=== PATIENT | female | born 2000 | race Caucasian/White ===

== ENCOUNTER 2025-06-10 19:54 | Inpatient (IN) | payer OTHER ==
[~2025-06-10] VITALS: Ht 167.6 cm; Wt 83.9 kg
[2025-06-10 20:31] VITALS: BP 154/92
[2025-06-10 22:12] LABS: BASO % 0.3 % (0.1-1.2); EOS # 0.07 (0.04-0.54); EOS % 0.6 % (0.7-7.0); LYMPH # 1.66 (1.18-3.74); LYMPH % 14.4 % (19.3-53.1); MEAN PLATELET VOLUME 10.60 fl (9.4-12.4); MONO # 0.68 (0.24-0.82); MONO % 5.9 % (4.7-12.5); NEUT # 8.98 (1.56-6.13); NEUT % 77.8 % (34.0-71.1); RED CELL DISTRIBUTION WIDTH 12.0 % (11.6-14.4)
[2025-06-10 22:13] LABS: URINE APPEARANCE Clear; URINE BILIRRUBIN Negative (NEGATIVE); URINE BLOOD Negative; URINE COLOR Yellow; URINE GLUCOSE Negative (NEGATIVE); URINE KETONE Negative (NEGATIVE); URINE LEUKOCYTE Trace; URINE NITRATE Negative; URINE PROTEIN Negative (NEGATIVE); URINE UROBILINOGEN 0.2 E.U./dl
[2025-06-10 22:17] LABS: URINE BACTERIA 3438.0 uL (0.0-1933); URINE EPITHELIAL CELLS 37.8 uL (0.0-38.8); URINE RBC 4.3 uL (0.0-20.8); URINE WBC 36.1 uL (0.0-23.2)
[2025-06-10 22:29] LABS: TYPE CELLS RENAL TUBULAR; URINE CAST 0.29 uL (0.0-1.40)
[2025-06-10 22:37] LABS: ALT/SGPT 88.0 U/L (12-78); AST/SGOT 77.0 U/L (15-37); BILIRUBIN TOTAL 0.24 mg/dL (0.3-1.2); BUN CREA RATIO 19.0 (7.0-25.0); CREATININE SERUM 0.68 mg/dL (0.55-1.02); GFR 104.59; GLOBULINA 4.1 G/DL (2.4-3.5); GLUCOSE FASTING 81.0 mg/dL (65-100); OSMOLALITY SERUM 280.0 MOSM/KG (275-295)
[2025-06-10] MEDS ORDERED: PRENATA CHEWAB1 EACH (22:45)
[2025-06-10 23:15] VITALS: BP 150/91
[2025-06-10] MEDS ORDERED: LABETALOL HCL 200 MG TABLET PO SCH (23:52)
[2025-06-11] VITALS (10 sets, daily range): BP systolic 132–163; BP diastolic 82–102; O2SAT 98–99
[2025-06-11] MEDS ORDERED: hydrALAZINE HCL 20 MG VIAL ONE (06:38)
[2025-06-11] MEDS ORDERED: hydrALAZINE HCL 20 MG VIAL IV ONE (07:45)
[2025-06-11] MEDS ORDERED: RINGERS SOLUTION,LACTATED 1,000 ML IV SCH (07:45)
[2025-06-11] MEDS ORDERED: MAGNESIUM SULFATE IN WATER 4 GM/100 ML PIGGYBACK IV ONE (11:06)
[2025-06-11] MEDS ORDERED: MAGNESIUM SULFATE IN WATER 0.04 GM/ML IV.SOLN IV ONE (11:06)
[2025-06-11] MEDS ORDERED: MAGNESIUM SULFATE IN WATER 100 ML IV ONE (11:30)
[2025-06-11] MEDS ORDERED: MAGNESIUM SULFATE IN WATER 500 ML IV SCH (11:30)
[2025-06-11] MEDS ORDERED: BETAMETHASONE ACETATE,SOD PHOS 30 MG/5 ML ML IM SCH (13:07)
[2025-06-11 14:29] LABS: BASO % 0.2 % (0.1-1.2); EOS # 0.02 (0.04-0.54); EOS % 0.2 % (0.7-7.0); LYMPH # 1.52 (1.18-3.74); LYMPH % 13.2 % (19.3-53.1); MEAN PLATELET VOLUME 10.40 fl (9.4-12.4); MONO # 0.63 (0.24-0.82); MONO % 5.5 % (4.7-12.5); NEUT # 9.17 (1.56-6.13); NEUT % 79.5 % (34.0-71.1); RED CELL DISTRIBUTION WIDTH 12.2 % (11.6-14.4)
[2025-06-11 14:59] LABS: ALT/SGPT 94.0 U/L (12-78); AST/SGOT 84.0 U/L (15-37); BILIRUBIN TOTAL 0.32 mg/dL (0.3-1.2); BUN CREA RATIO 9.0 (7.0-25.0); CREATININE SERUM 0.92 mg/dL (0.55-1.02); GFR 73.79; GLOBULINA 4.6 G/DL (2.4-3.5); GLUCOSE FASTING 92.0 mg/dL (65-100); OSMOLALITY SERUM 277.0 MOSM/KG (275-295)
[2025-06-12 03:25] VITALS: BP 116/74
[2025-06-12 06:14] VITALS: BP 133/70; O2SAT 98
== END 2025-06-12 09:20 | disposition home or self-care (01) | DRG 833 ==
LOC: OBS/DEL 19:54 → NST 20:45 → OBS/DEL 20:57 → LDR 06-11 07:12
PROVIDERS: Obstetrics & Gynecology; ADMIT Obstetrics & Gynecology; ATTEND Obstetrics & Gynecology
PROC: 4A1HXCZ Monitoring of Products of Conception, Cardiac Rate, External Approach (ICD-10-PCS; principal; 2025-06-11)
PROC: BY4FZZZ Ultrasonography of Third Trimester, Single Fetus (ICD-10-PCS; 2025-06-11)
DX: O10.013 Pre-existing essential hypertension complicating pregnancy, third trimester (principal); Z3A.35 35 weeks gestation of pregnancy

== ENCOUNTER 2025-06-13 10:44 | Outpatient (CLI) | payer OTHER ==
[~2025-06-13 10:44] MED LIST: PRENATA CHEWAB1 EACH
== END 2025-06-13 11:36 | disposition home or self-care (01) ==
LOC: NST 10:44
PROVIDERS: ATTEND Obstetrics & Gynecology
DX: Z34.83 Encounter for supervision of other normal pregnancy, third trimester (principal)

== ENCOUNTER 2025-06-16 11:57 | Inpatient (IN) | payer OTHER ==
[~2025-06-16] VITALS: Ht 167.6 cm; Wt 82.6 kg
[2025-06-16 12:14] VITALS: BP 148/90
[2025-06-16] MEDS ORDERED: CEFAZOLIN SODIUM 1,000 MG VIAL IV SCH (13:15)
[2025-06-16] MEDS ORDERED: CITRIC ACID/SODIUM CITRATE 30 ML BLIST.PACK PO SCH (13:15)
[2025-06-16] MEDS ORDERED: MAGNESIUM SULFATE IN WATER 100 ML IV ONE (13:15)
[2025-06-16] MEDS ORDERED: MAGNESIUM SULFATE IN WATER 500 ML IV SCH (13:15)
[2025-06-16 13:19] LABS: BASO % 0.2 % (0.1-1.2); EOS # 0.08 (0.04-0.54); EOS % 0.7 % (0.7-7.0); LYMPH # 1.22 (1.18-3.74); LYMPH % 10.3 % (19.3-53.1); MEAN PLATELET VOLUME 10.60 fl (9.4-12.4); MONO # 0.65 (0.24-0.82); MONO % 5.5 % (4.7-12.5); NEUT # 9.75 (1.56-6.13); NEUT % 82.2 % (34.0-71.1); RED CELL DISTRIBUTION WIDTH 12.1 % (11.6-14.4)
[2025-06-16 13:23] LABS: URINE APPEARANCE Clear; URINE BILIRRUBIN Negative (NEGATIVE); URINE BLOOD Negative; URINE COLOR Yellow; URINE GLUCOSE Negative (NEGATIVE); URINE KETONE Negative (NEGATIVE); URINE LEUKOCYTE Trace; URINE NITRATE Negative; URINE PROTEIN Trace (NEGATIVE); URINE UROBILINOGEN 0.2 E.U./dl
[2025-06-16 13:26] LABS: URINE BACTERIA 1580.4 uL (0.0-1933); URINE EPITHELIAL CELLS 46.1 uL (0.0-38.8); URINE RBC 2.3 uL (0.0-20.8); URINE WBC 71.9 uL (0.0-23.2)
[2025-06-16] MEDS ORDERED: RINGERS SOLUTION,LACTATED 1,000 ML IV SCH ×2 (13:30→16:30)
[2025-06-16 13:50] LABS: URINE CAST 0.87 uL (0.0-1.40)
[2025-06-16 13:53] LABS: INR < 0.93
[2025-06-16 13:59] LABS: ALT/SGPT 142.0 U/L (12-78); AST/SGOT 104.0 U/L (15-37); BILIRUBIN TOTAL 0.25 mg/dL (0.3-1.2); BUN CREA RATIO 27.0 (7.0-25.0); CREATININE SERUM 0.77 mg/dL (0.55-1.02); GFR 90.61; GLOBULINA 4.4 G/DL (2.4-3.5); GLUCOSE FASTING 78.0 mg/dL (65-100); LDH 152.0 U/L (84-246); OSMOLALITY SERUM 278.0 MOSM/KG (275-295)
[2025-06-16] MEDS ORDERED: MORPHINE SULFATE 4 MG/ML CARTRIDGE IV PRN (16:30)
[2025-06-16] MEDS ORDERED: OXYTOCIN 1,000 ML IV ONE (16:30)
[2025-06-16] MEDS ORDERED: MORPHINE SULFATE 4 MG/ML VIAL IV ONE ×2 (16:44→17:40)
[2025-06-16] MEDS ORDERED: GABAPENTIN 300 MG CAPSULE PO SCH (17:00)
[2025-06-16] MEDS ORDERED: SIMETHICONE 125 MG CAPSULE PO SCH (17:00)
[2025-06-16] MEDS ORDERED: ERYTHROMYCIN BASE OPHT 1GM EACH TUBE OP ONE (17:15)
[2025-06-16] MEDS ORDERED: OXYTOCIN 10 UNITS/ML VIAL IV ONE (17:15)
[2025-06-16] MEDS ORDERED: ACETAMINOPHEN 500 MG GEL..CAP PO SCH (18:00)
[2025-06-16] MEDS ORDERED: KETOROLAC TROMETHAMINE 30 MG VIAL IV SCH (18:00)
[2025-06-16] MEDS ORDERED: ONDANSETRON HCL 2 MG/ML VIAL IV SCH (18:00)
[2025-06-16] MEDS ORDERED: hydrALAZINE HCL 20 MG VIAL IV ONE (19:00)
[2025-06-16 19:44] VITALS: BP 156/94; O2SAT 99
[2025-06-16 19:55] VITALS: BP 150/96
[2025-06-16 22:42] VITALS: BP 158/91
[2025-06-16 23:36] VITALS: BP 150/88; O2SAT 98
[2025-06-16 23:58] LABS: BASO % 0.2 % (0.1-1.2); EOS # 0.05 (0.04-0.54); EOS % 0.3 % (0.7-7.0); LYMPH # 1.57 (1.18-3.74); LYMPH % 9.5 % (19.3-53.1); MEAN PLATELET VOLUME 10.40 fl (9.4-12.4); MONO # 0.90 (0.24-0.82); MONO % 5.5 % (4.7-12.5); NEUT # 13.82 (1.56-6.13); NEUT % 83.8 % (34.0-71.1); RED CELL DISTRIBUTION WIDTH 12.1 % (11.6-14.4)
[2025-06-17] VITALS (7 sets, daily range): BP systolic 128–166; BP diastolic 88–95; O2SAT 98–100
[2025-06-17 00:25] LABS: ALT/SGPT 124.0 U/L (12-78); AST/SGOT 98.0 U/L (15-37); BILIRUBIN TOTAL 0.4 mg/dL (0.3-1.2); BUN CREA RATIO 21.0 (7.0-25.0); CREATININE SERUM 0.71 mg/dL (0.55-1.02); GFR 99.51; GLOBULINA 3.9 G/DL (2.4-3.5); GLUCOSE FASTING 83.0 mg/dL (65-100); OSMOLALITY SERUM 278.0 MOSM/KG (275-295)
[2025-06-17] MEDS ORDERED: OxyCODONE HCL 5 MG TABLET (ROXICODONE) PO PRN (08:00)
[2025-06-17] MEDS ORDERED: KETOROLAC TROMETHAMINE 10 MG TABLET PO SCH (08:00)
[2025-06-17] MEDS ORDERED: NIFEDIPINE 30 MG TAB.SA.OSM PO SCH (09:00)
[2025-06-17] MEDS ORDERED: DOCUSATE SODIUM 100MG CAP PO SCH (09:00)
[2025-06-17 11:34] LABS: BASO % 0.2 % (0.1-1.2); EOS # 0.17 (0.04-0.54); EOS % 1.2 % (0.7-7.0); LYMPH # 1.04 (1.18-3.74); LYMPH % 7.6 % (19.3-53.1); MEAN PLATELET VOLUME 10.00 fl (9.4-12.4); MONO # 0.74 (0.24-0.82); MONO % 5.4 % (4.7-12.5); NEUT # 11.67 (1.56-6.13); NEUT % 85.1 % (34.0-71.1); RED CELL DISTRIBUTION WIDTH 12.2 % (11.6-14.4)
[2025-06-17] MEDS ORDERED: LABETALOL HCL 100 MG/20 ML ML IV ONE (12:00)
[2025-06-17 12:07] LABS: ALT/SGPT 126.0 U/L (12-78); AST/SGOT 111.0 U/L (15-37); BILIRUBIN TOTAL 0.43 mg/dL (0.3-1.2); BUN CREA RATIO 15.0 (7.0-25.0); CREATININE SERUM 0.65 mg/dL (0.55-1.02); GFR 110.18; GLOBULINA 4.4 G/DL (2.4-3.5); GLUCOSE FASTING 85.0 mg/dL (65-100); OSMOLALITY SERUM 267.0 MOSM/KG (275-295)
[2025-06-17 16:00] LABS: BASO % 0.1 % (0.1-1.2); EOS # 0.18 (0.04-0.54); EOS % 1.2 % (0.7-7.0); LYMPH # 1.26 (1.18-3.74); LYMPH % 8.5 % (19.3-53.1); MEAN PLATELET VOLUME 9.80 fl (9.4-12.4); MONO # 0.83 (0.24-0.82); MONO % 5.6 % (4.7-12.5); NEUT # 12.40 (1.56-6.13); NEUT % 84.0 % (34.0-71.1); RED CELL DISTRIBUTION WIDTH 12.3 % (11.6-14.4)
[2025-06-17 16:25] LABS: ALT/SGPT 112.0 U/L (12-78); AST/SGOT 97.0 U/L (15-37); BILIRUBIN TOTAL 0.33 mg/dL (0.3-1.2); BUN CREA RATIO 15.0 (7.0-25.0); CREATININE SERUM 0.75 mg/dL (0.55-1.02); GFR 93.41; GLOBULINA 4.0 G/DL (2.4-3.5); GLUCOSE FASTING 117.0 mg/dL (65-100); OSMOLALITY SERUM 271.0 MOSM/KG (275-295)
[2025-06-18] VITALS (8 sets, daily range): BP systolic 130–168; BP diastolic 88–119; O2SAT 98
[2025-06-18] MEDS ORDERED: MAGNESIUM SULFATE IN WATER 0.04 GM/ML IV.SOLN IV ONE (00:08)
[2025-06-18] MEDS ORDERED: NIFEDIPINE 30 MG TAB.SA.OSM PO SCH (09:00)
[2025-06-18] MEDS ORDERED: LABETALOL HCL 100 MG/20 ML ML IV PUSH STA (10:06)
[2025-06-18] MEDS ORDERED: LABETALOL HCL 200 MG TABLET PO SCH ×2 (13:00→17:00)
[2025-06-19 00:46] VITALS: BP 134/84
[2025-06-19 07:13] LABS: BASO % 0.2 % (0.1-1.2); EOS # 0.37 (0.04-0.54); EOS % 3.3 % (0.7-7.0); LYMPH # 2.04 (1.18-3.74); LYMPH % 18.2 % (19.3-53.1); MEAN PLATELET VOLUME 9.70 fl (9.4-12.4); MONO # 0.78 (0.24-0.82); MONO % 6.9 % (4.7-12.5); NEUT # 7.96 (1.56-6.13); NEUT % 70.9 % (34.0-71.1); RED CELL DISTRIBUTION WIDTH 12.8 % (11.6-14.4)
[2025-06-19 07:48] LABS: ALT/SGPT 90.0 U/L (12-78); AST/SGOT 81.0 U/L (15-37); BILIRUBIN TOTAL 0.23 mg/dL (0.3-1.2); BUN CREA RATIO 22.0 (7.0-25.0); CREATININE SERUM 0.54 mg/dL (0.55-1.02); GFR 136.47; GLOBULINA 3.8 G/DL (2.4-3.5); GLUCOSE FASTING 73.0 mg/dL (65-100); OSMOLALITY SERUM 278.0 MOSM/KG (275-295)
[2025-06-19 08:47] VITALS: BP 140/85; O2SAT 99
[2025-06-19 19:12] VITALS: BP 145/86
[2025-06-20 08:42] VITALS: BP 138/87; O2SAT 100
== END 2025-06-20 14:04 | disposition home or self-care (01) | DRG 786 ==
LOC: LDR 11:57 → OB/GYN 16:48 → O/R 18:05 → LDR 19:55 → OB/GYN 06-18 08:12
PROVIDERS: Obstetrics & Gynecology; ADMIT Obstetrics & Gynecology Gynecology; ATTEND Obstetrics & Gynecology Gynecology
PROC: 4A1HXCZ Monitoring of Products of Conception, Cardiac Rate, External Approach (ICD-10-PCS; 2025-06-16)
PROC: 10D00Z1 Extraction of Products of Conception, Low, Open Approach (ICD-10-PCS; principal; 2025-06-16 20:45)
DX: O14.14 Severe pre-eclampsia complicating childbirth (principal); O41.1430 Placentitis, third trimester, not applicable or unspecified; O26.643 Intrahepatic cholestasis of pregnancy, third trimester; O60.14X0 Preterm labor third trimester with preterm delivery third trimester, not applicable or unspecified; Z3A.35 35 weeks gestation of pregnancy; Z37.0 Single live birth